=== PATIENT | male | born 1975 | race Caucasian/White ===

== ENCOUNTER 2016-09-12 16:08 | Emergency (ER) | payer SELFPAY ==
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
[2016-09-12] MEDS: MAGNESIUM HYDROXIDE/AL HYDROX 30 ML, LIDOCAINE VISC 2% 200 MG PO ONE ×2 (17:25)
[2016-09-12] MEDS: 0.9 % SODIUM CHLORIDE 1,000 ML BAG IV ONE (17:26)
[2016-09-12 17:46] LABS: BASO % 0.3 % (0-6); EOS % 2.4 % (0-6); GRAN % 49.9 % (47-80); HEMATOCRIT 48.3 % (42.0-52.0); HEMOGLOBIN 15.9 gm/dl (14.0-18.0); LYMPH % 37.3 % (16-45); MEAN CELL VOLUME 88.1 fl (81-97); MEAN CORPUSCULAR HGB CONC 32.9 g/dl (32-36); MEAN PLATELET VOLUME 10.2 fl (7.4-10.4); MONO % 10.1 % (0-9); PLATELET COUNT 240 K/uL (130-400); RED BLOOD COUNT 5.48 M/uL (4.40-5.70); RED CELL DISTRIBUTION WIDTH 13.4 % (11.5-14.5)
[2016-09-12 17:47] LABS: URINE APPEARANCE CLEAR; URINE BILIRUBIN NEGATIVE (NEGATIVE); URINE BLOOD NEGATIVE (NEGATIVE); URINE COLOR YELLOW; URINE GLUCOSE (UA) NEGATIVE (NEGATIVE); URINE KETONE NEGATIVE (NEGATIVE); URINE LEUKOCYTE ESTERASE NEGATIVE (NEGATIVE); URINE NITRITE NEGATIVE (NEGATIVE); URINE PROTEIN NEGATIVE (NEGATIVE); URINE UROBILINOGEN 0.2 E.U./dL (0.20 - 1.00)
[2016-09-12 17:59] LABS: ALBUMIN 4.2 gm/dL (3.5-5.0); ALKALINE PHOSPHATASE 80 U/L (38-126); ALT/SGPT 60 U/L (21-72); ANION GAP 9.3 (7-16); AST/SGOT 46 U/L (17-59); BILIRUBIN,TOTAL 0.48 mg/dL (0.2-1.3); BLOOD UREA NITROGEN 13 mg/dL (9-20); CARBON DIOXIDE 25.7 mmol/L (22-30); CREATININE 0.7 mg/dL (0.66-1.25); EST GLOMERULAR FILTRATION RATE > 60 ml/min; GLUCOSE,RANDOM 86 mg/dL (70-110); LIPASE 60 U/L (23-300); TOTAL PROTEIN 7.3 gm/dL (6.3-8.2)
== END 2016-09-12 18:11 | disposition home or self-care (01) ==
LOC: ER 16:08
DX: K29.01 Acute gastritis with bleeding (principal); R10.11 Right upper quadrant pain; R11.2 Nausea with vomiting, unspecified
CPT/HCPCS: 76700; 80048; 80076; 81003; 83690; 85025; 96360; 99284; J7030

== ENCOUNTER 2016-09-25 07:28 | Emergency (ER) | payer SELFPAY ==
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
[2016-09-25] MEDS ORDERED: MORPHINE SULFATE 5 MG/ML PFS IVP ONE (07:48)
[2016-09-25] MEDS ORDERED: 0.9 % SODIUM CHLORIDE 1,000 ML BAG IV ONE (07:48)
[2016-09-25] MEDS ORDERED: ONDANSETRON HCL IV 4 MG/2 ML VIAL IVP ONE (07:48)
[2016-09-25 07:57] LABS: BASO % 0.2 % (0-6); EOS % 2.5 % (0-6); GRAN % 63.3 % (47-80); HEMATOCRIT 49.9 % (42.0-52.0); HEMOGLOBIN 16.4 gm/dl (14.0-18.0); LYMPH % 26.1 % (16-45); MEAN CELL VOLUME 88.3 fl (81-97); MEAN CORPUSCULAR HGB CONC 32.9 g/dl (32-36); MEAN PLATELET VOLUME 10.2 fl (7.4-10.4); MONO % 7.9 % (0-9); PLATELET COUNT 253 K/uL (130-400); RED BLOOD COUNT 5.65 M/uL (4.40-5.70); RED CELL DISTRIBUTION WIDTH 13.4 % (11.5-14.5); WHITE BLOOD COUNT W/O DIFF 12.5 K/uL (4.2-12.2)
[2016-09-25 08:09] LABS: ALB/GLOB RATIO 1.4 (1.1-1.8); ALBUMIN 4.3 gm/dL (3.5-5.0); ALKALINE PHOSPHATASE 85 U/L (38-126); ALT/SGPT 53 U/L (21-72); ANION GAP 9.3 (7-16); AST/SGOT 33 U/L (17-59); BILIRUBIN,TOTAL 0.47 mg/dL (0.2-1.3); BLOOD UREA NITROGEN 14 mg/dL (9-20); CARBON DIOXIDE 23.7 mmol/L (22-30); CREATINE PHOSPHOKINASE 88 U/L (55-170); CREATININE 0.7 mg/dL (0.66-1.25); EST GLOMERULAR FILTRATION RATE > 60 ml/min; GLUCOSE,RANDOM 95 mg/dL (70-110); TOTAL PROTEIN 7.3 gm/dL (6.3-8.2)
[2016-09-25 08:12] LABS: D-DIMER < 0.19 mg/L FEU (0-0.59); PROTHROMBIN TIME (PATIENT) 11.3 SECONDS (9.5-12.1)
[2016-09-25 08:21] LABS: CKMB 0.4 ug/L (0-6); TROPONIN I < 0.012 ng/mL (0.00-0.034)
[2016-09-25] MEDS ORDERED: KETOROLAC 30 MG/ML VIAL IVP ONE (08:50)
== END 2016-09-25 11:02 | disposition home or self-care (01) ==
LOC: ER 07:28
DX: R07.89 Other chest pain (principal); G43.909 Migraine, unspecified, not intractable, without status migrainosus; R11.0 Nausea
CPT/HCPCS: 71020; 80053; 82550; 82553; 84484; 85025; 85379; 85610; 85730; 93005; 93010; 96374; 96375; 99284; J1885; J2405; J7030

== ENCOUNTER 2016-12-05 17:41 | Observation (INO) | payer SELFPAY ==
--- NOTE | 2016-12-05 18:05 | Emergency Department Record ---
History of Present Illness - General Chief Complaint: Dizziness Stated Complaint: DIZZY,CONFUSED,SWEATING Time Seen by Provider: 12/05/16 17:58 Source: Patient Mode of Arrival: Ambulatory Limitations: No limitations - History of Present Illness Initial Comments: The patient is here due to having episodes of lightheadedness and weakness over the last hour. The onset was spontaneous while he was standing outside. They start with feeling of lightheadedness, dizziness, then nausea, and a burning sensation in his nose along with sweating. The episodes last 30 seconds to a minute and resolve. He denies any BUENO, CP, SOB, or KARISHMA. The patient denies any hx of similar issues or problems and has had no recent illnesses. MD Complaint: Dizziness, Lightheadedness, Near syncope Onset/Timin -: Hour(s) Timing: Sudden onset, Intermittent Description: Lightheadedness, Nausea, Other History of Same: No History of Trauma: No Improves With: Nothing Worsens With: Nothing Associated Symptoms: Diaphoresis, Fever/chills, Weakness - Stevie Coma Scale Eye Response: (4) Open spontaneously Motor Response: (6) Obeys commands Verbal Response: (5) Oriented [place] Total: 15 - Related Data Allergies Allergy/AdvReac Type Severity Reaction Status Date / Time Penicillins Allergy HIVES Verified 12/05/16 17:50 Travel Screening - Travel/Exposure Within Last 30 Days Have you traveled within the last 30 days?: No Review of Systems Constitutional: Denies: Chills, Fever Eyes: Denies: Eye discharge ENT: Denies: Congestion Respiratory: Denies: Cough, Dyspnea Past Medical History - SOCIAL HISTORY Smoking Status: Current some day smoker Alcohol Use: None Drug Use: None - RESPIRATORY Hx Respiratory Disorders: No - CARDIOVASCULAR Hx Cardio Disorders: Yes Hx Chest Pain: Yes Hx Hypertension: Yes - NEURO Hx Neuro Disorders: No - GI Hx GI Disorders: No Hx Reflux: Yes - Hx Genitourinary Disorders: No - ENDOCRINE Hx Endocrine Disorders: No - MUSCULOSKELETAL Hx Musculoskeletal Disorders: No Hx Back Injury: Yes - PSYCH Hx Psych Problems: No - HEMATOLOGY/ONCOLOGY Hx Hematology/Oncology Disorders: No Family Medical History Any Significant Family History?: Yes Hx Diabetes: Grandparents Hx Heart Disease: Grandparents Physical Exam - General General Appearance: Alert, Oriented x3, Cooperative, No acute distress - Head Head exam: Atraumatic, Normocephalic, Normal inspection - Eye Eye exam: Normal appearance, PERRL, EOMI - ENT ENT exam: Normal exam, Mucous membranes moist, Normal external ear exam, Normal orophraynx, TM's normal bilaterally Throat exam: Normal inspection. negative: Tonsillar erythema, Tonsillar exudate - Neck Neck exam: Normal inspection, Full ROM. negative: Lymphadenopathy, Meningismus , Tenderness - Respiratory Respiratory exam: Normal lung sounds bilaterally. negative: Respiratory distress - Cardiovascular Cardiovascular Exam: Regular rate, Normal rhythm, Normal heart sounds. negative : Diastolic murmur, Systolic murmur - GI/Abdominal GI/Abdominal exam: Soft, Normal bowel sounds. negative: Tenderness - Extremities Extremities exam: Normal inspection, Full ROM, Normal capillary refill. negative: Tenderness - Neurological Neurological exam: Alert, Normal gait, Oriented X3, Other (Neg Drift or [place].). negative: Abnormal gait, Altered, Motor sensory deficit - Skin Skin exam: negative: Petechiae, Rash Course Vital Signs 12/05/16 17:46 Temperature 98.3 F Pulse Rate 80 Respiratory 20 Rate Blood Pressure 116/77 Pulse Ox 97 - Reevaluation(s) Reevaluation #1: The patient did have an episode of these spells while I was examining him. He did become quite diaphoretic but had no pain or syncope or confusion. it lasted only for about 30 seconds and he did have a strong regular pulse during the event. 12/05/16 18:18 Reevaluation #2: The patient is doing very well at this time. He has not had any further episodes since he was first in the ED. He has had no CP, SOB, BUENO or KARISHMA. Due to the confusing nature of his complaints I did recommend admission and he does agree. I then did discuss the case with Erin POLANCO) and she accepts the admission. 12/05/16 19:01 Medical Decision Making - Data Complexity MDM Data: Labs Ordered and/or Reviewed, EKG Ordered and/or Reviewed - Lab Data Result diagrams: 12/06/16 06:40 12/05/16 18:13 - EKG Data -: EKG Interpreted by Me EKG: No Acute Changes, Normal EKG Disposition Disposition: Admit Clinical Impression: Arrhythmia Qualifiers: Arrhythmia type: unspecified cardiac arrhythmia Qualified Code(s): I49.9 - Cardiac arrhythmia, unspecified Disposition: Still a Patient at [facility] Decision to Admit: Admit from ER Decision to Admit Date: 12/05/16 Decision to Admit Time: 19:04 Accepting Physician: Amy Time Discussed w/Accepting Physician: 19:04 Condition: (2) Stable Time of Disposition: 19:04 Quality - Quality Measures Quality Measures: N/A - Blood Pressure Screening View Details: Yes Blood Pressure Classification: Normal BP Reading Systolic Measurement: 116 Diastolic Measurement: 77 Screening for High Blood Pressure: < Normal BP, F/U Not Required > [G8783] Normal BP Follow-up Interventions: No follow-up required
[2016-12-05 18:20] LABS: BASO % 0.2 % (0-6); EOS % 1.7 % (0-6); GRAN % 58.7 % (47-80); HEMATOCRIT 48.6 % (42.0-52.0); HEMOGLOBIN 16.5 gm/dl (14.0-18.0); LYMPH % 29.4 % (16-45); MEAN CELL VOLUME 86.3 fl (81-97); MEAN CORPUSCULAR HEMOGLOBIN 29.3 pg (27-33); MEAN PLATELET VOLUME 10.2 fl (7.4-10.4); PLATELET COUNT 257 K/uL (130-400); RED BLOOD COUNT 5.63 M/uL (4.40-5.70); RED CELL DISTRIBUTION WIDTH 13.3 % (11.5-14.5); WHITE BLOOD COUNT W/O DIFF 12.7 K/uL (4.2-12.2)
[2016-12-05 18:34] LABS: ANION GAP 11.5 (7-16); BLOOD UREA NITROGEN 14 mg/dL (9-20); CARBON DIOXIDE 25.5 mmol/L (22-30); CREATINE PHOSPHOKINASE 83 U/L (55-170); CREATININE 0.8 mg/dL (0.66-1.25); EST GLOMERULAR FILTRATION RATE > 60 ml/min; GLUCOSE,RANDOM 83 mg/dL (70-110)
[2016-12-05 18:36] LABS: INR 1.03; PARTIAL THROMBOPLASTIN TIME 29.2 SECONDS (24.5-39.1); PROTHROMBIN TIME (PATIENT) 11.1 SECONDS (9.5-12.1)
[2016-12-05 18:45] LABS: CKMB 0.4 ug/L (0-6)
[2016-12-05 18:46] LABS: URINE APPEARANCE CLEAR; URINE BILIRUBIN NEGATIVE (NEGATIVE); URINE BLOOD TRACE-I (NEGATIVE); URINE COLOR YELLOW; URINE GLUCOSE (UA) NEGATIVE (NEGATIVE); URINE KETONE NEGATIVE (NEGATIVE); URINE LEUKOCYTE ESTERASE NEGATIVE (NEGATIVE); URINE NITRITE NEGATIVE (NEGATIVE); URINE PROTEIN NEGATIVE (NEGATIVE); URINE UROBILINOGEN 0.2 E.U./dL (0.20 - 1.00)
[2016-12-05 18:48] LABS: TROPONIN I < 0.012 ng/mL (0.00-0.034)
[2016-12-05 18:55] LABS: AMPHETAMINE SCREEN URINE NOT DETECTED; BARBITURATE SCREEN URINE NOT DETECTED; BENZODIAZEPINE SCREEN URINE NOT DETECTED; COCAINE SCREEN URINE NOT DETECTED; METHADONE SCREEN URINE NOT DETECTED; METHAMPHETAMINE SCREEN NOT DETECTED; OPIATE SCREEN URINE NOT DETECTED; OXYCODONE SCREEN URINE NOT DETECTED; PHENCYCLIDINE SCREEN URINE NOT DETECTED; PROPOXYPHENE SCREEN URINE NOT DETECTED; THC SCREEN URINE DETECTED; TRICYCLIC ANTIDEPRESSANT SCRN NOT DETECTED
[2016-12-05 18:56] LABS: URINE RBC 0 - 2 (NONE SEEN); URINE WBC 0 - 2 (0-2/hpf)
[2016-12-05 18:57] LABS: URINE EPITHELIAL CELLS 0 - 2 (FEW)
[2016-12-05] MEDS: ASPIRIN 325 MG TAB ENTERIC-COATED PO SCH (21:17)
[2016-12-05 23:37] LABS: CKMB 0.3 ug/L (0-6); TROPONIN I < 0.012 ng/mL (0.00-0.034)
[2016-12-06 06:53] LABS: BASO % 0.3 % (0-6); EOS % 2.3 % (0-6); GRAN % 51.8 % (47-80); HEMATOCRIT 49.7 % (42.0-52.0); HEMOGLOBIN 16.5 gm/dl (14.0-18.0); LYMPH % 36.5 % (16-45); MEAN CELL VOLUME 87.5 fl (81-97); MEAN CORPUSCULAR HGB CONC 33.2 g/dl (32-36); MEAN PLATELET VOLUME 9.5 fl (7.4-10.4); MONO % 9.1 % (0-9); PLATELET COUNT 244 K/uL (130-400); RED BLOOD COUNT 5.68 M/uL (4.40-5.70); RED CELL DISTRIBUTION WIDTH 13.6 % (11.5-14.5); WHITE BLOOD COUNT W/O DIFF 11.2 K/uL (4.2-12.2)
[2016-12-06] MEDS ORDERED: PANTOPRAZOLE SODIUM 40 MG TABLET PO SCH (07:00)
[2016-12-06 07:04] LABS: ANION GAP 10.6 (7-16); BLOOD UREA NITROGEN 15 mg/dL (9-20); CARBON DIOXIDE 24.4 mmol/L (22-30); CREATININE 0.8 mg/dL (0.66-1.25); EST GLOMERULAR FILTRATION RATE > 60 ml/min; GLUCOSE,RANDOM 91 mg/dL (70-110)
[2016-12-06 07:16] LABS: CKMB 0.3 ug/L (0-6)
[2016-12-06 07:19] LABS: TROPONIN I < 0.012 ng/mL (0.00-0.034)
--- NOTE | 2016-12-06 08:01 | History & Physical ---
History of Present Illness - Date of Service Date of Service for History & Physical: 12/06/16 - History of Present Illness Admitting Diagnosis: 1. Acute Arrythmia by history. History of Present Illness: 41yo male with CC of light-headed. He has history of GERD and currently smokes. Patient presented to the ED due to having episodes of lightheadedness and weakness over the last hour. The onset was spontaneous while he was standing outside. They start with feeling of lightheadedness, dizziness, then nausea, and a burning sensation in his nose along with sweating. The episodes last 30 seconds to a minute and resolve. He denies any BUENO, CP, SOB, or KARISHMA. The patient denies any hx of similar issues or problems and has had no recent illnesses. He decided to come to the ED While in the ED, patient had normal EKG without changes from previous and no ST changes. 1st set of cardiac enzymes were normal. CBC and CMP were unremarkable. UA was normal. Toxicology was normal. Patient experienced another episode while in the ED but had regular rhythm and rate during that episode. no hypotension and episode resolved spontaneously. Patient was admitted for observation and for serial enzymes. 12/06/16-Patient states he has no further episodes since the one in the ED. he denies headache, chest pain, shortness of breath, numbness, tingling or weakness , no confusion. He says he was working outside in the heat when this occurred. He does typically work outside and this was not new for him. He has been seen by Dr. Miller in the past month for another ED visit for atypical chest pain. Patient is trying to establish with [facility] family practice. Travel Screening - Travel/Exposure Within Last 30 Days Have you traveled within the last 30 days?: No - Travel/Exposure Within Last Year Have you traveled outside the [place] in the last year?: No - Additonal Travel Details Have you been exposed to anyone with a communicable illness?: No Review of Systems Constitutional: Denies: Chills, Fever Eyes: Denies: Eye discharge ENT: Denies: Congestion Respiratory: Denies: Cough, Dyspnea Past Medical History - SOCIAL HISTORY Smoking Status: Current some day smoker Alcohol Use: None Drug Use: None - RESPIRATORY Hx Respiratory Disorders: No - CARDIOVASCULAR Hx Cardio Disorders: Yes Hx Chest Pain: Yes Hx Hypertension: Yes - NEURO Hx Neuro Disorders: No - GI Hx GI Disorders: No Hx Reflux: Yes - Hx Genitourinary Disorders: No - ENDOCRINE Hx Endocrine Disorders: No - MUSCULOSKELETAL Hx Musculoskeletal Disorders: No Hx Back Injury: Yes - PSYCH Hx Psych Problems: No - HEMATOLOGY/ONCOLOGY Hx Hematology/Oncology Disorders: No Family Medical History Any Significant Family History?: Yes Hx Diabetes: Grandparents Hx Heart Disease: Grandparents H&P Meds/Allergies - Allergies Allergies: Allergies Allergy/AdvReac Type Severity Reaction Status Date / Time Penicillins Allergy HIVES Verified 12/05/16 17:50 - Active Medications Active Medications: Current Medications Aspirin (Ecotrin (Ec)) 325 mg PO DAILY [facility] Last Admin: 12/05/16 21:17 Dose: 325 mg Pantoprazole [facility] Admin: 12/06/16 06:58 Dose: 40 mg Physical Exam - Vital Signs Vital Signs: Vital Signs - Last 24 Hrs Temp Pulse Pulse Resp BP Pulse Ox 12/06/16 05:57 97.4 F L 66 24 137/79 95 12/06/16 02:19 97.8 F 70 21 129/71 96 12/05/16 22:19 97.7 F 78 24 136/73 95 12/05/16 20:19 88.2 F L 80 16 144/84 94 L - General General Appearance: Alert, Oriented x3, Cooperative, No acute distress Limitations: No limitations - Head Head exam: Atraumatic, Normocephalic, Normal inspection - Eye Eye exam: Normal appearance, PERRL, EOMI - ENT ENT exam: Normal exam, Mucous membranes moist, Normal external ear exam, Normal orophraynx, TM's normal bilaterally Throat exam: Normal inspection. negative: Tonsillar erythema, Tonsillar exudate - Neck Neck exam: Normal inspection, Full ROM. negative: Lymphadenopathy, Meningismus , Tenderness - Respiratory Respiratory exam: Normal lung sounds bilaterally. negative: Respiratory distress - Cardiovascular Cardiovascular Exam: Regular rate, Normal rhythm, Normal heart sounds. negative : Diastolic murmur, Systolic murmur - GI/Abdominal GI/Abdominal exam: Soft, Normal bowel sounds. negative: Tenderness - Extremities Extremities exam: Normal inspection, Full ROM, Normal capillary refill. negative: Tenderness - Neurological Neurological exam: Alert, Normal gait, Oriented X3, Other (Neg Drift or Rhomberg.). negative: Abnormal gait, Altered, Motor sensory deficit - Skin Skin exam: negative: Petechiae, Rash Results - Labs Result Diagrams: 12/06/16 06:40 12/06/16 06:40 Labs Last 24 Hours: Laboratory Results - last 24 hr 12/05/16 12/06/16 12/06/16 23:05 06:40 06:40 WBC 11.2 RBC 5.68 Hgb 16.5 Hct 49.7 MCV 87.5 MCH 29.0 MCHC 33.2 RDW 13.6 Plt Count 244 MPV 9.5 Gran % 51.8 Lymphocytes % 36.5 Monocytes % 9.1 H Eosinophils % 2.3 Basophils % 0.3 Sodium 141 Potassium 4.0 Chloride 106 Carbon Dioxide 24.4 Anion Gap 10.6 BUN 15 Creatinine 0.8 Estimated GFR > 60 Random Glucose 91 Calcium 9.1 CK-MB (CK-2) 0.3 Troponin I < 0.012 12/06/16 06:40 WBC RBC Hgb Hct MCV MCH MCHC RDW Plt Count MPV Gran % Lymphocytes % Monocytes % Eosinophils % Basophils % Sodium Potassium Chloride Carbon Dioxide Anion Gap BUN Creatinine Estimated GFR Random Glucose Calcium CK-MB (CK-2) 0.3 Troponin I < 0.012 VTE H&P Assessment - Risk for VTE Risk for VTE: Yes Risk Level: Very Low Risk Assessment Date: 12/06/16 Risk Assessment Time: 11:31 VTE Orders Placed or Will Be Placed: Yes Plan - Detailed Diagnosis and Plan (1) Light headed Current Visit: Yes Status: Acute Base Code: R42 - DIZZINESS AND GIDDINESS Comment: 12/06/16- Patient has not had any further episodes of light-headedness. He denies any chest pain. Monitored him overnight on telemetry, had a few episodes with bradycardia with sleep but regular rhythm. all 3 sets of CE returned wnl range. CBC and CMP were unremarkable as was UA and toxicology screen. do not feel this is cardiac in origin but likely vasovagal vs heat related. -will plan to discharge home. patient has had outpatient consultation with Dr. Miller previously. He will follow up with [facility] Family practice. -if episodes are recurrent may consider a longer duration of monitoring with a holter. (2) Full code status Current Visit: Yes Status: Acute Base Code: Z78.9 - OTHER SPECIFIED HEALTH STATUS Comment: 12/06/16- patient is full code (3) DVT prophylaxis Current Visit: Yes Status: Acute Base Code: [id number] - Comment: 12/06/16- patient very low risk for DVT -will encourage ambulation -will add lovneox if stay >24H anticipated
[2016-12-06] MEDS: ASPIRIN 325 MG TAB ENTERIC-COATED PO SCH (10:48)
--- NOTE | 2016-12-06 11:58 | Discharge Summary ---
Providers Discharge Summary Date: 12/06/16 Date of admission: 12/05/16 20:05 Expected Date of Discharge: 12/06/16 Attending physician: NA GONZALEZ Primary care physician: NA GONZALEZ Consults: Consult Orders 12/06/16 09:08 Consult NOW Consulting Provider: NA GONZALEZ Physician Instructions: Financial consult Reason For Exam: Financial consult Physical Exam - Vital Signs Vital Signs: Vital Signs - Last 24 Hrs Temp Pulse Pulse Resp BP Pulse Ox 12/06/16 08:51 55 L 12/06/16 05:57 97.4 F L 66 24 137/79 95 12/06/16 02:19 97.8 F 70 21 129/71 96 12/05/16 22:19 97.7 F 78 24 136/73 95 12/05/16 20:19 88.2 F L 80 16 144/84 94 L - General General Appearance: Alert, Oriented x3, Cooperative, No acute distress Limitations: No limitations - Head Head exam: Atraumatic, Normocephalic, Normal inspection - Eye Eye exam: Normal appearance, PERRL, EOMI - ENT ENT exam: Normal exam, Mucous membranes moist, Normal external ear exam, Normal orophraynx, TM's normal bilaterally Throat exam: Normal inspection. negative: Tonsillar erythema, Tonsillar exudate - Neck Neck exam: Normal inspection, Full ROM. negative: Lymphadenopathy, Meningismus , Tenderness - Respiratory Respiratory exam: Normal lung sounds bilaterally. negative: Respiratory distress - Cardiovascular Cardiovascular Exam: Regular rate, Normal rhythm, Normal heart sounds. negative : Diastolic murmur, Systolic murmur - GI/Abdominal GI/Abdominal exam: Soft, Normal bowel sounds. negative: Tenderness - Extremities Extremities exam: Normal inspection, Full ROM, Normal capillary refill. negative: Tenderness - Neurological Neurological exam: Alert, Normal gait, Oriented X3, Other (Neg Drift or Rhomberg.). negative: Abnormal gait, Altered, Motor sensory deficit - Skin Skin exam: negative: Petechiae, Rash Hospitalization - Hospitalization Admission Diagnosis: 1. Acute Arrythmia by history. - Problem List/Discharge Diagnosis (1) Light headed Current Visit: Yes Status: Acute Base Code: R42 - DIZZINESS AND GIDDINESS Comment: 12/06/16- Patient has not had any further episodes of light-headedness. He denies any chest pain. Monitored him overnight on telemetry, had a few episodes with bradycardia with sleep but regular rhythm. all 3 sets of CE returned wnl range. CBC and CMP were unremarkable as was UA and toxicology screen. do not feel this is cardiac in origin but likely vasovagal vs heat related. -will plan to discharge home. patient has had outpatient consultation with Dr. Miller previously. He will follow up with [facility]. -if episodes are recurrent may consider a longer duration of monitoring with a holter. (2) Full code status Current Visit: Yes Status: Acute Base Code: Z78.9 - OTHER SPECIFIED HEALTH STATUS Comment: 12/06/16- patient is full code (3) DVT prophylaxis Current Visit: Yes Status: Acute Base Code: [id number] - Comment: 12/06/16- patient very low risk for DVT -will encourage ambulation -will add lovneox if stay >24H anticipated - Hospitalization Course Disposition: Home, Self-Care Hospital Course: 41yo male with CC of light-headed. He has history of GERD and currently smokes. Patient presented to the ED due to having episodes of lightheadedness and weakness over the last hour. The onset was spontaneous while he was standing outside. They start with feeling of lightheadedness, dizziness, then nausea, and a burning sensation in his nose along with sweating. The episodes last 30 seconds to a minute and resolve. He denies any BUENO, CP, SOB, or KARISHMA. The patient denies any hx of similar issues or problems and has had no recent illnesses. He decided to come to the ED While in the ED, patient had normal EKG without changes from previous and no ST changes. 1st set of cardiac enzymes were normal. CBC and CMP were unremarkable. UA was normal. Toxicology was normal. Patient experienced another episode while in the ED but had regular rhythm and rate during that episode. no hypotension and episode resolved spontaneously. Patient was admitted for observation and for serial enzymes. 12/06/16-Patient states he has no further episodes since the one in the ED. he denies headache, chest pain, shortness of breath, numbness, tingling or weakness , no confusion. He says he was working outside in the heat when this occurred. He does typically work outside and this was not new for him. He has been seen by Dr. Miller in the past month for another ED visit for atypical chest pain. Patient is trying to establish with [facility] family practice. Abnormal Labs: Abnormal Lab Results 12/06/16 Range/Units 06:40 Monocytes % 9.1 H (0-9) % Condition at Discharge: (2) Stable Discharge Plan - Discharge Instructions Activity at Discharge: Resume Usual Activities As Tolerated Diet at Discharge: Low Fat, Low Cholesterol, Low Salt Diet Additional Instructions: Follow up with [facility] family practice. Tana manager medicare will schedule continue home medications Please call with any questions or concerns Return to ED for new or worsening symptoms
== END 2016-12-06 12:15 | disposition home or self-care (01) ==
LOC: ER 17:41 → MEDSURG 20:05
PROVIDERS: ADMIT Family Medicine; ATTEND Family Medicine
DX: R42 Dizziness and giddiness (principal); Z78.9 Other specified health status; F17.200 Nicotine dependence, unspecified, uncomplicated; K21.9 Gastro-esophageal reflux disease without esophagitis; I10 Essential (primary) hypertension
CPT/HCPCS: 80048; 80305; 81001; 82550; 82553; 84484; 85025; 85610; 85730; 93005; 93010; 99220; 99285

== ENCOUNTER 2016-12-07 13:07 | Emergency (ER) | payer SELFPAY ==
--- NOTE | 2016-12-07 13:19 | Emergency Department Record ---
History of Present Illness - General Chief Complaint: Syncope Stated Complaint: near syncope Time Seen by Provider: 12/07/16 13:11 Source: Patient Mode of Arrival: Ambulatory Limitations: No limitations - History of Present Illness Initial Comments: The patient is here due to having a "spell" 2 hours ago. He was at home and had an episode of lightheadedness, had trouble speaking, weakness and a mild BUENO that lasted about 30 seconds. It did resolve spontaneously and since he has had very mild L lower lip tingling. He denies any arm or leg numbness, weakness, BUENO , visual changes or balance issues. The patient has had similar spells 2 days ago and was admitted to the hospital overnight. No diagnosis was given and he was discharged yesterday. MD Complaint: Other Onset/Timin -: Hour(s) Prodromal Symptoms: Headache, Lightheaded, Vertigo Duration of Episode: 30 -: Second(s) - Stevie Coma Scale Eye Response: (4) Open spontaneously Motor Response: (6) Obeys commands Verbal Response: (5) Oriented Jasper Total: 15 - Related Data Allergies Allergy/AdvReac Type Severity Reaction Status Date / Time Penicillins Allergy HIVES Verified 12/05/16 17:50 Travel Screening - Travel/Exposure Within Last 30 Days Have you traveled within the last 30 days?: No - Travel/Exposure Within Last Year Have you traveled outside the [place] in the last year?: No - Additonal Travel Details Have you been exposed to anyone with a communicable illness?: No - Travel Symptoms Symptom Screening: None Review of Systems Constitutional: Denies: Chills, Fever Eyes: Denies: Eye discharge ENT: Denies: Congestion Respiratory: Denies: Cough, Dyspnea Past Medical History - SOCIAL HISTORY Smoking Status: Current every day smoker Alcohol Use: None Drug Use: None - RESPIRATORY Hx Respiratory Disorders: No - CARDIOVASCULAR Hx Cardio Disorders: Yes Hx Chest Pain: Yes Hx Hypertension: Yes - NEURO Hx Neuro Disorders: No - GI Hx GI Disorders: No Hx Reflux: Yes - Hx Genitourinary Disorders: No - ENDOCRINE Hx Endocrine Disorders: No - MUSCULOSKELETAL Hx Musculoskeletal Disorders: No Hx Back Injury: Yes - PSYCH Hx Psych Problems: No - HEMATOLOGY/ONCOLOGY Hx Hematology/Oncology Disorders: No Family Medical History Any Significant Family History?: No Hx Diabetes: Grandparents Hx Heart Disease: Grandparents Physical Exam - General General Appearance: Alert, Oriented x3, Cooperative, No acute distress - Head Head exam: Atraumatic, Normocephalic, Normal inspection - Eye Eye exam: Normal appearance, PERRL, EOMI - ENT ENT exam: Normal exam, Mucous membranes moist, Normal external ear exam, Normal orophraynx, TM's normal bilaterally Throat exam: Normal inspection. negative: Tonsillar erythema, Tonsillar exudate - Neck Neck exam: Normal inspection, Full ROM. negative: Lymphadenopathy, Tenderness, Thyromegaly - Respiratory Respiratory exam: Normal lung sounds bilaterally. negative: Respiratory distress - Cardiovascular Cardiovascular Exam: Regular rate, Normal rhythm, Normal heart sounds - GI/Abdominal GI/Abdominal exam: Soft, Normal bowel sounds. negative: Tenderness - Extremities Extremities exam: Normal inspection, Full ROM, Normal capillary refill. negative: Tenderness - Neurological Neurological exam: Alert, Normal gait, Oriented X3, Other (Neg Drift or Rhomberg exams. He does have mild subjective tingling to the L lower lip.). negative: Abnormal gait, Altered, Motor sensory deficit (Except for the L lower lip.) - Psychiatric Psychiatric exam: negative: Agitated, Anxious, Depressed Course Vital Signs 12/07/16 13:11 Temperature 98.4 F Pulse Rate 71 Respiratory 16 Rate Blood Pressure 120/89 Pulse Ox 96 - Reevaluation(s) Reevaluation #1: The patient is doing very well at this time. He denies any new symptoms or issues. I did discuss the issues with the patient and did recommend hospital admission for further studies and he did agree. He would like to go to [facility] so I did discuss the case with Dr. Vásquez and he does accept the patient to the hospital as a direct admit. 12/07/16 14:32 Medical Decision Making - Data Complexity [facility] Data: X-Ray Ordered and/or Reviewed, EKG Ordered and/or Reviewed - EKG Data -: EKG Interpreted by Me EKG: No Acute Changes, Normal EKG - Radiology Data Radiology results: Report reviewed (Head CT: Neg per Rad.) Disposition Disposition: Transfer Clinical Impression: Light headed TIA (transient ischemic attack) Qualifiers: Transient cerebral ischemia type: other Qualified Code(s): G45.8 - Other transient cerebral ischemic attacks and related syndromes Disposition: Acute Care Hospital Transfer Transfer To: [facility] Reason For Transfer: Neurology Accepting Physician: Thalia Time Discussed w/Accepting Physician: 14:35 Condition: (1) Good Forms: Patient Portal Access Time of Disposition: 14:35 Quality - Quality Measures Quality Measures: N/A - Blood Pressure Screening View Details: Yes Blood Pressure Classification: Pre-Hypertensive BP Reading Systolic Measurement: 120 Diastolic Measurement: 89 Screening for High Blood Pressure: < Pre-Hypertensive BP, F/U Documented > [ G8950] Pre-Hypertensive Follow-up Interventions: Follow-up with rescreen every year.
[2016-12-07] MEDS: ASPIRIN 325 MG TABLET PO ONE (14:03)
--- NOTE | 2016-12-07 14:07 | CT SCAN REPORT ---
EXAM: CT OF THE HEAD WITHOUT CONTRAST HISTORY: VERTIGO. TRANSIENT APHASIA. MIGRAINE HEADACHE. NAUSEA. TECHNIQUE: Routine noncontrast CT examination of the head was obtained. Comparison: None. FINDINGS: The ventricles are not enlarged. The left lateral ventricle is larger than the right, likely developmental. The subarachnoid spaces are normal in size. No area of abnormally increased or decreased attenuation is noted throughout the brain substance. No abnormal extraaxial fluid collection is seen nor is there skull fracture identified. There is mild mucosal thickening in a few ethmoid air cells and the sphenoid sinuses. A tiny retention cyst or less likely polyp is present within the lateral aspect of the left sphenoid sinus. The orbits are unremarkable. The mastoid air cells are clear. IMPRESSION: 1. NO CT EVIDENCE OF AN ACUTE INTRACRANIAL ABNORMALITY. 2. THE LEFT LATERAL VENTRICLE IS MILDLY LARGER THAN THE RIGHT, LIKELY DEVELOPMENTAL. 3. MILD MUCOSAL THICKENING IN SEVERAL ETHMOID AIR CELLS AND THE SPHENOID SINUSES. TINY RETENTION CYST OR POLYP WITHIN THE LEFT SPHENOID SINUS. JOB NUMBER: [id number] MTDD
== END 2016-12-07 15:46 | disposition short-term general hospital (02) ==
LOC: ER 13:07
DX: G45.8 Other transient cerebral ischemic attacks and related syndromes (principal); R51 Headache; R55 Syncope and collapse; R47.01 Aphasia; I10 Essential (primary) hypertension; F17.210 Nicotine dependence, cigarettes, uncomplicated
CPT/HCPCS: 70450; 93005; 93010; 99285

== ENCOUNTER 2017-07-30 05:17 | Emergency (ER) | payer MEDICAID, SELFPAY ==
[2017-07-30] MEDS ORDERED: KETOROLAC 30 MG/ML VIAL IVP ONE (05:24)
[2017-07-30] MEDS ORDERED: METOCLOPRAMIDE HCL 10 MG/2 ML VIAL IVP ONE (05:24)
[2017-07-30] MEDS ORDERED: 0.9 % SODIUM CHLORIDE 1,000 ML BAG IV ONE (05:24)
[2017-07-30] MEDS ORDERED: DIPHENHYDRAMINE HCL IV 50 MG/ML VIAL IVP ONE (05:24)
--- NOTE | 2017-07-30 05:31 | Emergency Department Record ---
History of Present Illness - General Chief Complaint: Headache Migraine Stated Complaint: HEADACHE Time Seen by Provider: 07/30/17 05:19 Source: Patient Mode of Arrival: Ambulatory Limitations: No limitations - History of Present Illness Initial Comments: 41 yo male presents with a headache that started at 2am. He states he has had migraines since he was a child. He had headaches he identifies as migraines woody 2-3 weeks. He states his current symptoms are typical of his migraine in local and character but did not respond to his typical medications. He is light sensitive and nauseated. He vomited twice. This symptoms are not unusual with his migraines. He follows with [facility] neurology for his migraines. No other recent illness or changes in his health. MD Complaint: "Migraine" -: Hour(s) (5.5) Onset Description: Awoke with symptoms Location: Left Severity: Moderate Quality: Aching, Throbbing, Similar to previous headaches Consistency: Constant Improves With: Nothing Worsens With: Light, Noise Associated Symptoms: Nausea, Photophobia, Sensitivity to sound Treatments Prior to Arrival: Migraine medication - Related Data Allergies Allergy/AdvReac Type Severity Reaction Status Date / Time Penicillins Allergy HIVES Verified 12/05/16 17:50 Review of Systems Constitutional: Denies: Chills, Fever, Malaise, Weakness Eyes: Reports: Photophobia. Denies: Eye discharge, Eye pain, Vision change ENT: Denies: Congestion, Throat pain Respiratory: Denies: Cough, Dyspnea Cardiovascular: Denies: Chest pain, Palpitations, Syncope Endocrine: Denies: Fatigue Gastrointestinal: Reports: Nausea, Vomiting. Denies: Abdominal pain, Diarrhea Genitourinary: Denies: Dysuria, Frequency, Hematuria Musculoskeletal: Denies: Arthralgia, Back pain, Joint swelling, Myalgia Skin: Denies: Bruising, Change in color, Rash Neurological: Reports: Headache. Denies: Abnormal gait, Confusion, Numbness, Paresthesias, Seizure, Tingling, Tremors, Vertigo, Weakness Psychiatric: Denies: Anxiety Hematological/Lymphatic: Denies: Blood Clots, Easy bleeding, Easy bruising, Swollen glands Past Medical History - SOCIAL HISTORY Smoking Status: Current every day smoker Drug Use: None - RESPIRATORY Hx Respiratory Disorders: No - CARDIOVASCULAR Hx Cardio Disorders: Yes Hx Chest Pain: Yes Hx Hypertension: Yes - NEURO Hx Neuro Disorders: No - GI Hx GI Disorders: No Hx Reflux: Yes - Hx Genitourinary Disorders: No - ENDOCRINE Hx Endocrine Disorders: No - MUSCULOSKELETAL Hx Musculoskeletal Disorders: No Hx Back Injury: Yes - PSYCH Hx Psych Problems: No - HEMATOLOGY/ONCOLOGY Hx Hematology/Oncology Disorders: No Family Medical History Hx Diabetes: Grandparents Hx Heart Disease: Grandparents Physical Exam - General General Appearance: Alert, Oriented x3, Cooperative, No acute distress Limitations: No limitations - Head Head exam: Normal inspection - Eye Eye exam: Normal appearance, PERRL, EOMI. negative: Conjunctival injection, Nystagmus, Periorbital swelling, Scleral icterus - ENT ENT exam: Normal exam Ear exam: Normal external inspection Nasal Exam: Normal inspection Mouth exam: Normal external inspection - Neck Neck exam: Normal inspection, Full ROM. negative: Lymphadenopathy, Meningismus , Tenderness - Respiratory Respiratory exam: Normal lung sounds bilaterally. negative: Respiratory distress - Cardiovascular Cardiovascular Exam: Regular rate, Normal rhythm, Normal heart sounds Peripheral Pulses: 2+: Radial (R), Radial (L) - Rectal Rectal exam: Deferred - exam: Deferred - Extremities Extremities exam: Normal inspection, Full ROM - Back Back exam: Denies: Muscle spasm, Paraspinal tenderness, Tenderness - Neurological Neurological exam: Alert, CN II-XII intact, Normal gait, Oriented X3. negative : Abnormal gait, Altered, Motor sensory deficit - Psychiatric Psychiatric exam: Normal affect, Normal mood - Skin Skin exam: Dry, Intact, Normal color, Warm Course Vital Signs 07/30/17 05:21 Temperature 97.6 F Pulse Rate [ 74 Pulse Ox Probe] Respiratory 20 Rate Blood Pressure 158/104 [Left Arm] Pulse Ox 96 - Reevaluation(s) Reevaluation #1: 07/30/17 06:15 On recheck the patient is doing much better His nausea has resolved. His pain level is decreasing. He is comfortable resting at this time. 07/30/17 06:48 The patient is resting comfortably and he reports he is ready for DC We discussed home care, rest, hydration and reasons to return Disposition Clinical Impression: Migraine headache Disposition: Home, Self-Care Instructions: Migraine Headache (ED) Additional Instructions: Call DR Paez for close followup of your headache Return if worse, any new symptoms or concerns Rest and stay well hydrated. Forms: Patient Portal Access Quality - Quality Measures Quality Measures: N/A - Blood Pressure Screening Does Patient Have Any of the Following: No Blood Pressure Classification: Hypertensive Reading Systolic Measurement: 142 Diastolic Measurement: 96 Screening for High Blood Pressure: < Pre-Hypertensive BP, F/U Documented > [ G8950] Pre-Hypertensive Follow-up Interventions: Referral to alternative/primary care provider.
[2017-07-30] MEDS ORDERED: DEXAMETHASONE SOD PHOSPHATE 10MG/ML VIAL IVP ONE (06:15)
== END 2017-07-30 06:54 | disposition home or self-care (01) ==
LOC: ER 05:17
DX: G43.909 Migraine, unspecified, not intractable, without status migrainosus (principal); R11.0 Nausea; H53.149 Visual discomfort, unspecified; I10 Essential (primary) hypertension; F17.210 Nicotine dependence, cigarettes, uncomplicated
CPT/HCPCS: 99284 ×2; 96374; 96375; J1885; J1100; J1200; J2765; J7030

== ENCOUNTER 2017-08-27 07:55 | Emergency (ER) | payer MEDICAID, SELFPAY ==
--- NOTE | 2017-08-27 08:18 | Emergency Department Record ---
History of Present Illness - General Chief Complaint: Dizziness Stated Complaint: DIZZINESS Time Seen by Provider: 08/27/17 08:09 Source: Patient Mode of Arrival: Ambulatory Limitations: No limitations - History of Present Illness Initial Comments: 41 yo male presents with a resolved 10 minute episode of lightheaded and dizziness. He felt a burning sensation in the nasal area. It made him briefly nauseated and he dry heaved a couple times. No syncope. No weakness. No vision or speech changes. He had a similar episode that last longer last year. He was transferred and admitted to [facility]. He reports to me he had normal MRI, ECHO, and EEG. NO definitive diagnosis was made. He states he was admitted to rule out a TIA at that time. No history of diagnosed stroke, CAD, arrhythmia. No chest pain. No shortness of breath. Onset/Timin -: Minutes(s) Timing: Sudden onset Description: Nausea, "Room spinning" History of Same: Yes History of Trauma: No Severity: Mild Improves With: Nothing Worsens With: Nothing Associated Symptoms: Denies other symptoms, Other - Related Data Allergies Allergy/AdvReac Type Severity Reaction Status Date / Time Penicillins Allergy HIVES Verified 12/05/16 17:50 Travel Screening - Travel/Exposure Within Last 30 Days Have you traveled within the last 30 days?: No Review of Systems Constitutional: Denies: Chills, Fever, Malaise, Weakness Eyes: Reports: Eye pain (resolved). Denies: Eye discharge ENT: Denies: Congestion, Dental pain, Ear pain, Epistaxis, Throat pain Respiratory: Denies: Cough, Dyspnea, Hemoptysis, Stridor, Wheezes Cardiovascular: Denies: Chest pain, Palpitations, Syncope Endocrine: Denies: Fatigue, Polydipsia, Polyuria Gastrointestinal: Reports: As per HPI, Nausea, Vomiting. Denies: Diarrhea Genitourinary: Denies: Dysuria, Frequency Musculoskeletal: Denies: Arthralgia, Back pain, Joint swelling, Myalgia Skin: Denies: Bruising, Change in color, Rash Neurological: Reports: Vertigo. Denies: Abnormal gait, Confusion, Headache, Numbness, Paresthesias, Seizure, Tingling, Tremors, Weakness Psychiatric: Denies: Anxiety Hematological/Lymphatic: Denies: Blood Clots, Easy bleeding, Easy bruising, Swollen glands Past Medical History - SOCIAL HISTORY Smoking Status: Former smoker Alcohol Use: None Drug Use: None - RESPIRATORY Hx Respiratory Disorders: No - CARDIOVASCULAR Hx Cardio Disorders: Yes Hx Chest Pain: Yes Hx Hypertension: Yes - NEURO Hx Neuro Disorders: Yes Hx Headaches: Yes (migraine) - GI Hx GI Disorders: Yes Hx Reflux: Yes - Hx Genitourinary Disorders: No - ENDOCRINE Hx Endocrine Disorders: No - MUSCULOSKELETAL Hx Musculoskeletal Disorders: Yes Hx Back Injury: Yes - PSYCH Hx Psych Problems: No - HEMATOLOGY/ONCOLOGY Hx Hematology/Oncology Disorders: No Family Medical History Any Significant Family History?: Yes Hx Diabetes: Grandparents Hx Heart Disease: Grandparents Physical Exam - General General Appearance: Alert, Oriented x3, Cooperative, No acute distress, Other ( Well appearing, conversational, clear thoughts and speech) Limitations: No limitations - Head Head exam: Atraumatic, Normocephalic, Normal inspection - Eye Eye exam: Normal appearance, PERRL, EOMI. negative: Conjunctival injection, Nystagmus, Periorbital swelling, Periorbital tenderness, Scleral icterus - ENT ENT exam: Normal exam, Mucous membranes moist Ear exam: Normal external inspection Nasal Exam: Normal inspection Mouth exam: Normal external inspection. negative: Drooling, Tongue normal Teeth exam: Normal inspection Throat exam: Normal inspection - Neck Neck exam: Normal inspection, Full ROM. negative: Tenderness - Respiratory Respiratory exam: Normal lung sounds bilaterally. negative: Respiratory distress - Cardiovascular Cardiovascular Exam: Regular rate, Normal rhythm, Normal heart sounds. negative : Diastolic murmur, Systolic murmur Peripheral Pulses: 2+: Radial (R), Radial (L) - GI/Abdominal GI/Abdominal exam: Soft. negative: Tenderness - Rectal Rectal exam: Deferred - exam: Deferred - Extremities Extremities exam: Normal inspection, Full ROM, Normal capillary refill. negative: Tenderness - Back Back exam: Reports: Normal inspection, Full ROM. Denies: Muscle spasm, Rash noted, Tenderness - Neurological Neurological exam: Alert, CN II-XII intact, Normal gait, Oriented X3, Reflexes normal, Other (no PND, normal FTN, normal HOLGER, no ataxia). negative: Abnormal gait, Altered, Motor sensory deficit - Psychiatric Psychiatric exam: Normal affect, Normal mood - Skin Skin exam: Dry, Intact, Normal color, Warm Course Vital Signs 08/27/17 07:58 Temperature 97.6 F Pulse Rate 86 Respiratory 20 Rate Blood Pressure 138/101 Pulse Ox 97 - Reevaluation(s) Reevaluation #1: 08/27/17 08:21 The patient is currently asymptomatic The episode lasted 10 minutes DC Summary will be requested from [facility] NIH is 0 08/27/17 08:35 EKG NSR rate 69 intervals normal, axis normal, ST normal with NS repol. No changes on EKG 12/05/16 including NS repol changes. 08/27/17 08:48 Prior [facility] records reviewed in the [facility] after prior work up. Patient reported several similar spells in the past. After negative work up PCP noted this may be migraine related as well given his frequent migraines. The patient has had normal work ups with neurology and cardiology. 08/27/17 09:10 DC Summary from [facility] was reviewed. The report states normal CT,CTA,MRI and neurology consult. He had a normal follow up EEG (per the patient). 08/27/17 09:11 The labs were reviewed. No acute changes. 08/27/17 09:23 The HCT was reviewed with the radiologist. No acute process or changes from the prior. The symptoms were brief and atypical for acute neuro event. He has had an extensive work up in the past. I discussed the case with his PCP. The patient is stable for outpatient follow with PCP and his neurologist. We discussed home care today with rest and reasons to return if any return of symptoms 08/27/17 09:32 The patient has been asymptomatic from arrival to discharge. 08/27/17 09:37 Medical Decision Making - Lab Data Result diagrams: 08/27/17 08:30 08/27/17 08:30 Disposition Disposition: Discharge Clinical Impression: Dizziness Disposition: Home, Self-Care Condition: (1) Good Instructions: Dizziness (ED) Additional Instructions: Call your neurologist and PCP for close follow up Return or be seen if you have any additional symptoms Rest today and stay well hydrated No work today Forms: Patient Portal Access Time of Disposition: 09:35 Quality - Quality Measures Quality Measures: Headache (All Ages) - Headache: Neuroimaging Quality Measure: Measure #419: Overuse of Neuroimaging ICD10 Codes Entered: Yes Neurological Exam: Patient had a normal neurological exam. [G9535] Headache: Use of Neuroimaging: CTA, CT, MRA or MRI Ordered w/Medical Reason [ G9536] Medical Reason for Exam: Change in Type of Headache - Blood Pressure Screening Does Patient Have Any of the Following: No Blood Pressure Classification: Hypertensive Reading Systolic Measurement: 138 Diastolic Measurement: 101 Screening for High Blood Pressure: < Pre-Hypertensive BP, F/U Documented > [ G8950] Pre-Hypertensive Follow-up Interventions: Referral to alternative/primary care provider.
[2017-08-27 08:40] LABS: BASO % 0.3 % (0-6); GRAN % 62.2 % (47-80); HEMATOCRIT 50.6 % (42.0-52.0); HEMOGLOBIN 16.6 gm/dl (14.0-18.0); LYMPH % 26.1 % (16-45); MEAN CELL VOLUME 89.7 fl (81-97); MEAN CORPUSCULAR HEMOGLOBIN 29.4 pg (27-33); MEAN CORPUSCULAR HGB CONC 32.8 g/dl (32-36); MEAN PLATELET VOLUME 9.4 fl (7.4-10.4); MONO % 9.4 % (0-9); PLATELET COUNT 238 K/uL (130-400); RED BLOOD COUNT 5.64 M/uL (4.40-5.70); RED CELL DISTRIBUTION WIDTH 13.4 % (11.5-14.5); WHITE BLOOD COUNT W/O DIFF 8.9 K/uL (4.2-12.2)
[2017-08-27 08:48] LABS: BLOOD UREA NITROGEN 15 mg/dL (6-20); CREATININE 0.8 mg/dL (0.7-1.2); EST GLOMERULAR FILTRATION RATE > 60 mL/min
[2017-08-27 08:49] LABS: TOTAL PROTEIN 7.3 g/dL (6.6-8.7)
[2017-08-27 08:51] LABS: GLUCOSE,RANDOM 118 mg/dL (74-109)
[2017-08-27 08:54] LABS: ALB/GLOB RATIO 1.5 (1.1-1.8); ALBUMIN 4.4 g/dL (4.0-5.0); ALKALINE PHOSPHATASE 87 U/L (40-129); ALT/SGPT 43 U/L (<41); AST/SGOT 30 U/L (10.0-50.0)
--- NOTE | 2017-08-28 08:15 | CT SCAN REPORT ---
EXAM: EMERGENCY HEAD CT HISTORY: DIZZINESS, CONFUSED, ARM AND HAND NUMB. TECHNIQUE: Axial CT scan of the head was performed without IV contrast. Comparison: Head CT 12/07/16. FINDINGS: No definite acute intracranial hemorrhage identified. Mild asymmetry in the lateral ventricles appears essentially unchanged from before and may simply be developmental. No definite intracranial mass or acute infarct seen. Small cyst or polyp medial wall of the left maxillary sinus. Moderate membrane thickening in the ethmoids bilaterally. No depressed calvarial fracture evident. IMPRESSION: 1. ASYMMETRY IN THE LATERAL VENTRICLES BEFORE. 2. NO DEFINITE ACUTE INTRACRANIAL HEMORRHAGE OR MASS IDENTIFIED. 3. SMALL CYST OR POLYP IN THE LEFT MAXILLARY SINUS AND MEMBRANE THICKENING IN THE ETHMOIDS BILATERALLY. JOB NUMBER: [id number] MTDD
== END 2017-08-27 09:44 | disposition home or self-care (01) ==
LOC: ER 07:55
DX: R42 Dizziness and giddiness (principal); R11.0 Nausea; I10 Essential (primary) hypertension; Z87.891 Personal history of nicotine dependence
CPT/HCPCS: 70450; 80053; 85025; 93005; 93010; 99284

== ENCOUNTER 2017-09-03 06:39 | Emergency (ER) | payer MEDICAID, SELFPAY ==
--- NOTE | 2017-09-03 07:03 | Emergency Department Record ---
History of Present Illness - General Chief complaint: Extremity Problem Stated complaint: LEFT ARM PAIN Time Seen by Provider: 09/03/17 06:56 Source: Patient Mode of Arrival: Ambulatory Limitations: No limitations - History of Present Illness Initial comments: 41 yo male presents with about one week of neck pain radiates to his left arm. The arm hurts to raise or lift up. He feels like the arm gets tingling at times. No swelling. No trauma. He has been seen for recent migraines and dizziness. He has been admitted to [facility] in the recent past that included work up of head CT,CTA,MRI and ECHO without any acute findings. No trauma. No known cervical disc disease that he is aware of. No chest pain, cough or shortness of breath. He has been seen by [facility] neurology in the past. MD Complaint: Neck Pain Onset/Timin -: Week(s) Location: Left, Arm History of Same: Yes Radiation: Proximal Severity scale (1-10): 6 Quality: Aching Consistency: Constant Improves with: Nothing Worsens with: Other Associated Symptoms: Denies other symptoms - Related Data Previous Rx's Medication Instructions Recorded Methylprednisolone [Medrol Dose 0 mg PO UD #1 tab.ds.pk 09/03/17 Pack] Allergies Allergy/AdvReac Type Severity Reaction Status Date / Time Penicillins Allergy HIVES Verified 12/05/16 17:50 Travel Screening - Travel/Exposure Within Last 30 Days Have you traveled within the last 30 days?: No - Travel Symptoms Symptom Screening: None Review of Systems Constitutional: Denies: Chills, Fever, Malaise, Weakness Eyes: Denies: Eye discharge ENT: Denies: Congestion, Throat pain Respiratory: Denies: Cough, Dyspnea, Hemoptysis, Stridor, Wheezes Cardiovascular: Denies: Chest pain, Palpitations, Syncope Endocrine: Denies: Fatigue Gastrointestinal: Denies: Abdominal pain, Diarrhea, Nausea, Vomiting Genitourinary: Denies: Dysuria, Frequency, Hematuria Musculoskeletal: Reports: Arthralgia, Myalgia. Denies: Joint swelling Skin: Denies: Bruising, Change in color, Rash Neurological: Reports: Headache (history of migraines), Tingling. Denies: Confusion, Weakness Psychiatric: Denies: Anxiety Hematological/Lymphatic: Denies: Blood Clots, Easy bleeding, Easy bruising, Swollen glands Past Medical History - SOCIAL HISTORY Smoking Status: Former smoker Alcohol Use: None Drug Use: Occasional Drug Use Detail:: Marijuana - RESPIRATORY Hx Respiratory Disorders: No - CARDIOVASCULAR Hx Cardio Disorders: Yes Hx Chest Pain: Yes Hx Hypertension: Yes - NEURO Hx Neuro Disorders: Yes Hx Headaches: Yes (migraine) - GI Hx GI Disorders: Yes Hx Reflux: Yes - Hx Genitourinary Disorders: No - ENDOCRINE Hx Endocrine Disorders: No - MUSCULOSKELETAL Hx Musculoskeletal Disorders: Yes Hx Back Injury: Yes - PSYCH Hx Psych Problems: No - HEMATOLOGY/ONCOLOGY Hx Hematology/Oncology Disorders: No Family Medical History Any Significant Family History?: Yes Hx Diabetes: Grandparents Hx Heart Disease: Grandparents Physical Exam - General General Appearance: Alert, Oriented x3, Cooperative, No acute distress Limitations: No limitations - Head Head exam: Atraumatic, Normal inspection - Eye Eye exam: Normal appearance, PERRL. negative: Conjunctival injection, Scleral icterus - ENT ENT exam: Normal exam, Mucous membranes moist Ear exam: Normal external inspection Nasal Exam: Normal inspection Mouth exam: Normal external inspection Teeth exam: Normal inspection Throat exam: Normal inspection - Neck Neck exam: Normal inspection, Full ROM, Tenderness. negative: Lymphadenopathy - Respiratory Respiratory exam: Normal lung sounds bilaterally. negative: Respiratory distress - Cardiovascular Cardiovascular Exam: Regular rate, Normal rhythm, Normal heart sounds Peripheral Pulses: 2+: Radial (L) - GI/Abdominal GI/Abdominal exam: Soft. negative: Tenderness - Rectal Rectal exam: Deferred - exam: Deferred - Extremities Extremities exam: Normal inspection, Normal capillary refill. negative: Calf tenderness, Full ROM (pain with left arm abduction, veterans contact representative 5/5, triceps 5/5, biceps 5/5, brisk cap refill, ), Joint swelling, Pedal edema, Tenderness - Back Back exam: Reports: Normal inspection. Denies: CVA tenderness (R), CVA tenderness (L), Muscle spasm, Paraspinal tenderness, Rash noted - Neurological Neurological exam: Alert, Normal gait, Oriented X3, Reflexes normal, Other (No objective weakness on examination of the LUE). negative: Altered, Motor sensory deficit - Psychiatric Psychiatric exam: Normal affect, Normal mood - Skin Skin exam: Dry, Intact, Normal color, Warm Course Vital Signs 09/03/17 06:49 Temperature 97.6 F Pulse Rate [ 74 Pulse Ox Probe] Respiratory 18 Rate Blood Pressure 136/98 [Right Arm] Pulse Ox 97 - Reevaluation(s) Reevaluation #1: The patient was seen and examined No objective motor weakness. Symptoms are radicular in nature. CT ordered I recommended close follow with PCP for MRI if not improved as well. He has seen [facility] neurology in the past and I recommended follow up as well with them 09/03/17 07:05 09/03/17 07:50 CT Cervical spine [facility] report:Degenerative changes C5-6 and C6-7, mild AP spinal stenosis at C6-7 slight narrowing of neural foramen Disposition Disposition: Discharge Clinical Impression: Cervical radicular pain Disposition: Home, Self-Care Condition: (1) Good Instructions: Cervical Radiculopathy (ED) Additional Instructions: Call your doctor for follow up in the office and the with [facility] neurology Prescriptions: Methylprednisolone [Medrol Dose Pack] 0 mg PO UD #1 tab.ds.pk Forms: Patient Portal Access Time of Disposition: 07:52 Quality - Quality Measures Quality Measures: Headache (All Ages) - Headache: Neuroimaging Quality Measure: Measure #419: Overuse of Neuroimaging ICD10 Codes Entered: Yes Neurological Exam: Patient had a normal neurological exam. [G9535] Headache: Use of Neuroimaging: < CTA, CT, MRA or MRI was NOT ordered > [G9534] - Blood Pressure Screening Does Patient Have Any of the Following: No Blood Pressure Classification: Hypertensive Reading Systolic Measurement: 136 Diastolic Measurement: 98 Screening for High Blood Pressure: < Pre-Hypertensive BP, F/U Documented > [ G8950] Pre-Hypertensive Follow-up Interventions: Referral to alternative/primary care provider.
--- NOTE | 2017-09-03 10:46 | CT SCAN REPORT ---
EXAM: CT OF THE CERVICAL SPINE HISTORY: NECK PAIN. TECHNIQUE: Axial CT images of the cervical spine were obtained with coronal and sagittal reconstructions. Comparison: None. FINDINGS: Evaluation of the spinal canal contents is limited due to CT technique, however, the vertebral body height and alignment is preserved. Multilevel degenerative change with disk space narrowing, osteophytic spurring, facet arthropathy, and uncovertebral joint hypertrophy. Findings are most pronounced at the C5-C6 and C6-C7 levels. The surrounding soft tissues are unremarkable. IMPRESSION: MULTILEVEL DEGENERATIVE CHANGE. NO CT EVIDENCE FOR ACUTE CERVICAL SPINE ABNORMALITY. JOB NUMBER: [id number] [facility]
== END 2017-09-03 08:07 | disposition home or self-care (01) ==
LOC: ER 06:39
DX: M54.12 Radiculopathy, cervical region (principal); I10 Essential (primary) hypertension; Z87.891 Personal history of nicotine dependence
CPT/HCPCS: 72125; 99283

== ENCOUNTER 2017-09-13 18:21 | Emergency (ER) | payer MEDICAID, SELFPAY ==
--- NOTE | 2017-09-13 19:38 | Emergency Department Record ---
History of Present Illness - General Chief Complaint: Laceration(s) Stated Complaint: LACERATION ON TOP OF HEAD Time Seen by Provider: 09/13/17 19:27 Source: Patient Mode of Arrival: Ambulatory Limitations: No limitations - History of Present Illness Initial Commments: 41 yo male presents a small scalp laceration. 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 No LOC. Tetanus is up to date. No changes in his vision. He has been dealing chronic headaches and left arm numbness that he follows with his PCP. He has an outpatient MRI tomorrow. No new changes in those symptoms. No other injuries. Onset/Timin -: Minutes(s) Location: Scalp Place: Home Context: Accidental Associated Symptoms: None - [place] Coma Scale Eye Response: (4) Open spontaneously Motor Response: (6) Obeys commands Verbal Response: (5) Oriented [place] Total: 15 - Related Data Hx Tetanus Toxoid Vaccination: Yes Year of Tetanus Vaccination: 2014 Patient Tetanus UTD (within 5 yrs): Yes Previous Rx's Medication Instructions Recorded Methylprednisolone [Medrol Dose 0 mg PO UD #1 tab.ds.pk 09/03/17 Pack] Allergies Allergy/AdvReac Type Severity Reaction Status Date / Time Penicillins Allergy HIVES Verified 12/05/16 17:50 Travel Screening - Travel/Exposure Within Last 30 Days Have you traveled within the last 30 days?: No Review of Systems Constitutional: Denies: Chills, Fever, Malaise, Weakness Eyes: Denies: Eye discharge ENT: Denies: Congestion, Throat pain Respiratory: Denies: Cough Cardiovascular: Denies: Chest pain Endocrine: Denies: Fatigue Gastrointestinal: Denies: Abdominal pain, Diarrhea, Nausea, Vomiting Genitourinary: Denies: Dysuria, Frequency, Hematuria Musculoskeletal: Reports: Neck pain. Denies: Arthralgia, Back pain, Joint swelling, Myalgia Skin: Denies: Bruising, Change in color, Rash Neurological: Reports: As per HPI, Headache, Tingling. Denies: Confusion Psychiatric: Denies: Anxiety Hematological/Lymphatic: Denies: Easy bleeding, Easy bruising Past Medical History - SOCIAL HISTORY Smoking Status: Former smoker Alcohol Use: None Drug Use: None - RESPIRATORY Hx Respiratory Disorders: No - CARDIOVASCULAR Hx Cardio Disorders: Yes Hx Chest Pain: Yes Hx Hypertension: Yes - NEURO Hx Neuro Disorders: Yes Hx Headaches: Yes (migraine) - GI Hx GI Disorders: Yes Hx Reflux: Yes - Hx Genitourinary Disorders: No - ENDOCRINE Hx Endocrine Disorders: No - MUSCULOSKELETAL Hx Musculoskeletal Disorders: Yes Hx Back Injury: Yes - PSYCH Hx Psych Problems: No - HEMATOLOGY/ONCOLOGY Hx Hematology/Oncology Disorders: No Family Medical History Any Significant Family History?: Yes Hx Diabetes: Grandparents Hx Heart Disease: Grandparents Physical Exam - General General Appearance: Alert, Oriented x3, Cooperative, No acute distress Limitations: No limitations - Head Head exam: negative: Atraumatic Head exam detail: Laceration (2cm scalp laceration) - Eye Eye exam: Normal appearance, PERRL. negative: Conjunctival injection, Scleral icterus - ENT ENT exam: Normal exam Ear exam: Normal external inspection Nasal Exam: Normal inspection Mouth exam: Normal external inspection Teeth exam: Normal inspection - Neck Neck exam: Normal inspection - Respiratory Respiratory exam: Normal lung sounds bilaterally. negative: Respiratory distress - Cardiovascular Cardiovascular Exam: Regular rate, Normal rhythm, Normal heart sounds - GI/Abdominal GI/Abdominal exam: Soft. negative: Tenderness - Rectal Rectal exam: Deferred - exam: Deferred - Extremities Extremities exam: Normal inspection, Full ROM, Normal capillary refill. negative: Tenderness - Back Back exam: Reports: Normal inspection - Neurological Neurological exam: Alert, Oriented X3 - Psychiatric Psychiatric exam: Normal affect, Normal mood - Skin Type of lesion: Laceration Course Vital Signs 09/13/17 19:18 Temperature 98.8 F Pulse Rate [ 97 H Pulse Ox Probe] Respiratory 24 Rate Blood Pressure 145/73 [Left Arm] Pulse Ox 99 - Reevaluation(s) Reevaluation #1: 09/13/17 19:36 Betadine Prep Cleaned with NS and ShurClens Sutures recommended given MRI tomorrow 3 sutures placed Proline 4-0 Tolerated well. Disposition Disposition: Discharge Clinical Impression: Scalp laceration Qualifiers: Encounter type: initial encounter Qualified Code(s): S01.01XA - Laceration without foreign body of scalp, initial encounter Disposition: Home, Self-Care Condition: (1) Good Instructions: Laceration (ED) Additional Instructions: Return in one week for suture removal Return sooner if you have redness, pus, pain or any new concerns. Time of Disposition: 19:37 Quality - Quality Measures Quality Measures: N/A, Headache (All Ages) - Headache: Neuroimaging Quality Measure: Measure #419: Overuse of Neuroimaging ICD10 Codes Entered: Yes Neurological Exam: Patient had a normal neurological exam. [G9535] Headache: Use of Neuroimaging: < CTA, CT, MRA or MRI was NOT ordered > [G9534] - Blood Pressure Screening Does Patient Have Any of the Following: Active Dx of HTN Blood Pressure Classification: Hypertensive Reading Systolic Measurement: 145 Diastolic Measurement: 73 Screening for High Blood Pressure: Patient Exclusion, Hx of HTN [G9744]
== END 2017-09-13 19:58 | disposition home or self-care (01) ==
LOC: ER 18:21
DX: S01.01XA Laceration without foreign body of scalp, initial encounter (principal); W22.8XXA Striking against or struck by other objects, initial encounter; I10 Essential (primary) hypertension; Z87.891 Personal history of nicotine dependence; Y92.008 Other place in unspecified non-institutional (private) residence as the place of occurrence of the external cause
CPT/HCPCS: 12001; 99283

== ENCOUNTER 2018-10-14 09:04 | Emergency (ER) | payer BC ==
[2018-10-14] MEDS ORDERED: MORPHINE SULFATE 10MG/1ML **1ML VIAL IM ONE (09:36)
--- NOTE | 2018-10-14 09:43 | Emergency Department Record ---
History of Present Illness - General Chief Complaint: Back Pain/Injury Stated Complaint: BACK PAIN Time Seen by Provider: 10/14/18 09:30 Source: Patient Mode of Arrival: Ambulatory Limitations: No limitations - History of Present Illness Initial Comments: 42 yo male presents with about two week of back pain. The pain is low and radiates down the left leg at times. No numbness or weakness. No changes to urination or bowel movements. He has seen his PCP and had XRays. He has an MRI scheduled for Saturday. No prior back surgery. No fevers. MD Complaint: Back pain Onset/Timin -: Week(s) (2) Place: Home Severity: Moderate Quality: Aching Consistency: Constant Improves With: Immobilization Worsens With: Movement Context: Bending Associated Symptoms: Denies other symptoms - Related Data Previous Rx's Medication Instructions Recorded Hydrocodone/Acetaminophen [[place] 1 tab PO Q6H PRN #12 tab 10/14/18 5mg/325mg] Allergies Allergy/AdvReac Type Severity Reaction Status Date / Time Penicillins Allergy HIVES Verified 10/14/18 09:36 Travel Screening - Travel/Exposure Within Last 30 Days Have you traveled within the last 30 days?: No - Travel/Exposure Within Last Year Have you traveled outside the [place] in the last year?: No - Additonal Travel Details Have you been exposed to anyone with a communicable illness?: No - Travel Symptoms Symptom Screening: None Review of Systems Constitutional: Denies: Chills, Fever, Malaise, Weakness Eyes: Denies: Eye discharge ENT: Denies: Congestion, Throat pain Respiratory: Denies: Cough Cardiovascular: Denies: Chest pain, Syncope Endocrine: Denies: Fatigue Gastrointestinal: Denies: Abdominal pain, Diarrhea, Nausea, Vomiting Genitourinary: Denies: Dysuria, Frequency, Hematuria, Incontinence, Retention Musculoskeletal: Reports: Back pain. Denies: Arthralgia, Myalgia Skin: Denies: Bruising, Change in color, Rash Neurological: Denies: Confusion, Headache Psychiatric: Denies: Anxiety Hematological/Lymphatic: Denies: Easy bleeding, Easy bruising Past Medical History - SOCIAL HISTORY Smoking Status: Former smoker Alcohol Use: None Drug Use: None - RESPIRATORY Hx Respiratory Disorders: No - CARDIOVASCULAR Hx Cardio Disorders: Yes Hx Chest Pain: Yes Hx Hypertension: Yes - NEURO Hx Neuro Disorders: Yes Hx Headaches: Yes (migraine) - GI Hx GI Disorders: Yes Hx Reflux: Yes - Hx Genitourinary Disorders: No - ENDOCRINE Hx Endocrine Disorders: No - MUSCULOSKELETAL Hx Musculoskeletal Disorders: Yes Hx Back Injury: Yes - PSYCH Hx Psych Problems: No - HEMATOLOGY/ONCOLOGY Hx Hematology/Oncology Disorders: No Family Medical History Any Significant Family History?: Yes Hx Diabetes: Grandparents Hx Heart Disease: Grandparents Physical Exam - General General Appearance: Alert, Oriented x3, Cooperative, No acute distress Limitations: No limitations - Head Head exam: Atraumatic, Normal inspection - Eye Eye exam: Normal appearance. negative: Conjunctival injection, Scleral icterus - ENT ENT exam: Normal exam Ear exam: Normal external inspection Nasal Exam: Normal inspection Mouth exam: Normal external inspection - Neck Neck exam: Normal inspection - Respiratory Respiratory exam: Normal lung sounds bilaterally. negative: Respiratory distress - Cardiovascular Cardiovascular Exam: Regular rate, Normal rhythm, Normal heart sounds - Rectal Rectal exam: Deferred - exam: Deferred - Extremities Extremities exam: Normal inspection, Full ROM. negative: Pedal edema, Tenderness - Back Back exam: Reports: Muscle spasm, Paraspinal tenderness (low lumbar), Tendern ess, Vertebral tenderness. Denies: CVA tenderness (R), CVA tenderness (L), Full ROM Image of Body Front/Back: 1 - tender lower lumbar to the left glutteal - Neurological Neurological exam: Alert, Normal gait, Oriented X3, Reflexes normal. negative: Motor sensory deficit - Psychiatric Psychiatric exam: Normal affect, Normal mood - Skin Skin exam: Dry, Intact, Normal color, Warm Course Vital Signs 10/14/18 09:29 Temperature 98.4 F Pulse Rate 91 H Respiratory 17 Rate Blood Pressure 146/107 Pulse Ox 97 - Reevaluation(s) Reevaluation #1: 10/14/18 09:40 The examination is consistent with sciatica No weakness or changes in bowel or bladder He has an MRI scheduled He will be given a limited amount of pain medication for home and off work 2 days. 10/14/18 09:43 XR was reviewed from 09/22/18 Disposition Disposition: Discharge Clinical Impression: Sciatica Qualifiers: Laterality: left Qualified Code(s): M54.32 - Sciatica, left side Disposition: Home, Self-Care Condition: (1) Good Instructions: Sciatica (ED) Additional Instructions: Call your doctor for the next available follow up appointment Review this ER visit and the tests performed with your family doctor Return to the ER for a recheck if worse, any new concerns or questions Take the prescriptions provided as directed Prescriptions: Hydrocodone/Acetaminophen [[place] 5mg/325mg] 1 tab PO Q6H PRN #12 tab PRN Reason: Pain - General Forms: Patient Portal Access Time of Disposition: 09:43 Quality - Quality Measures Quality Measures: N/A - Blood Pressure Screening Does Patient Have Any of the Following: No Blood Pressure Classification: Hypertensive Reading Systolic Measurement: 128 Diastolic Measurement: 109 Screening for High Blood Pressure: < Pre-Hypertensive BP, F/U Documented > [G8950] Pre-Hypertensive Follow-up Interventions: Referral to alternative/primary care provider.
== END 2018-10-14 10:06 | disposition home or self-care (01) ==
LOC: ER 09:04
DX: M54.42 Lumbago with sciatica, left side (principal); I10 Essential (primary) hypertension; Z87.891 Personal history of nicotine dependence
CPT/HCPCS: 96372; 99283; J2270

== ENCOUNTER 2019-03-11 11:17 | Day surgery (SDC) | payer BC ==
--- NOTE | 2019-03-11 07:33 | History and Physical - [place] ---
CHIEF COMPLAINT/HISTORY OF CHIEF COMPLAINT: This patient presents with a history of an intractable lumbar radiculopathy. Due to the failure of therapy he is here for an intraspinal spacer at L4-L5 to control a bilateral lower extremity neurogenic intermittent claudication or pain to his lower extremities. PAST MEDICAL HISTORY: Hypertension. PAST SURGICAL HISTORY: Myringotomy. MEDICATIONS ON ADMISSION: List to be provided. ALLERGIES: PENICILLIN. FAMILY/PSYCHOSOCIAL HISTORY: Social history - Caffeine and smoking. Family history - Hypothyroidism, diabetes, and coronary artery disease. SYSTEMS REVIEW: The patient seems appropriate in no acute distress. The remainder of the systems review is positive for chronic head and neck pain, blood pressure problems, degenerative arthritis, and peptic ulcer disease. PHYSICAL EXAMINATION: Height is 6', weight is 300 pounds. No vital signs. HEENT: Within normal limits. LUNGS: Clear. HEART: Rapid and regular. ABDOMEN: Nontender. MUSCULOSKELETAL: Examination of the musculoskeletal system shows the primary pain pattern to be bilateral lower extremity. Diagnostics show a moderate disk bulge spurring with central stenosis and foraminal stenosis at L4-L5. Lower extremity functionality shows pain and weakness extending into the extremities. The pattern of pain is relieved with forward flexing and sitting, aggravated and exacerbated with activity. IMPRESSION: 1. LUMBAR RADICULOPATHY, ICD-10 CODE M54.16 AND M54.17. 2. LUMBAR SPINAL STENOSIS WITH NEUROGENIC INTERMITTENT CLAUDICATION, ICD-10 CODE M48.062. PLAN: The patient is here for intraspinal spacer at L4-L5. The risks, side effects and complications have all been reviewed and discussed. He has already been given a copy of his restrictions for six weeks and understands the potential complications of the procedure itself. The procedure will be considered outpatient, an overnight stay will be not required. The incision and suturing and all of the details of the procedure were carefully reviewed and discussed. All of his questions were answered. cc: Dr. Scherer. JOB NUMBER: [id number] [facility]
[~2019-03-11 11:17] MED LIST: ACETAMINOPHEN 1,000 MG/100 ML BTL IVPB ONE; CLINDAMYCIN 600MG/50ML PREMIX 600 MG/50 ML BAG IVPB ONE; FAMOTIDINE 20MG TABLET PO ONE; MECLIZINE 25 MG TABLET PO ONE; METOCLOPRAMIDE 10 MG TABLET PO ONE
[2019-03-11] MEDS ORDERED: GLYCOPYRROLATE 0.2 MG/ML ML IV ONE (11:18)
[2019-03-11] MEDS ORDERED: LABETALOL HCL 5MG/ML, 20ML VIAL IV ONE (11:18)
[2019-03-11] MEDS ORDERED: METOPROLOL TART 5 MG/5 ML VIAL IV ONE (11:18)
[2019-03-11] MEDS ORDERED: MIDAZOLAM HCL 2MG/2ML VIAL IV ONE (11:18)
[2019-03-11] MEDS ORDERED: PROPOFOL 10 MG/ML VIAL IV ONE (11:18)
[2019-03-11] MEDS ORDERED: LIDOCAINE 2% MDV (20MG/ML) 20ML VIAL IV ONE (11:18)
[2019-03-11] MEDS ORDERED: RINGERS SOLUTION,LACTATED 1,000 ML IV ONE ×2 (12:10→15:50)
[2019-03-11] MEDS ORDERED: LIDOCAINE 1% W/EPI 1:200,000 MPF 30ML SQ ONE (15:00)
[2019-03-11] MEDS ORDERED: BUPIVACAINE 0.5% W/EPI MPF 30 ML VIAL SQ ONE (15:00)
[2019-03-11] MEDS ORDERED: Clindamycin 600mg vial 150 MG/ML VIAL IR ONE (15:00)
--- NOTE | 2019-03-13 13:10 | Operative Note ---
DATE OF SURGERY: 03/11/2019 PREOPERATIVE DIAGNOSIS: Lumbar spinal stenosis with neurogenic intermittent claudication, ICD10 code M48.062. OPERATION: Fluoroscopic-guided placement of interspinal spacer, Vertiflex, at L4-5. SURGEON: Mian Asher DO ANESTHESIA: Local with sedation. ANESTHESIA PROVIDER: Erin Mensah INDICATION: This patient presents with lumbar spinal stenosis at L4-5 with a symptom pattern consistent with neurogenic intermittent claudication. Certain activities will irrigate and aggravate. Forward bending relieves, sitting relieves. Due to the failure of therapy and the symptom pattern consistent with spinal stenosis at L4-5, he is here for an interspinous spacer placement, Vertiflex. PROCEDURE: Intravenous line, vital sign monitoring, IV sedation. Prepped and draped sterile technique. Patient positioned prone. Sterile prep, sterile technique. Under imaging, the spinal interspace at L4-5 was imaged. The spinous processes aligned. Using AP and lateral imaging, the skin infiltrated. Introducer/dilator was then inserted using AP and lateral imaging and placed at the posterior aspect between the spinous process of L4 and L5. A secondary dilator was then inserted and placed midline and midpoint between the spinous processes of L4 and L5. AP and lateral imaging was used. A debridement tool was then used towards the posterior laminar line and then a Vertiflex titanium interspinous spacer was inserted using AP and lateral imaging and placed at the inner laminar line. It was slowly opened using AP imaging angling towards the front aspect of the spinous process and imaging posterior at the posterior spinous process to ensure that the Vertiflex interspinous spacer was opening equally between the spinous processes. At that point, it was fully expanded and seated between the spinous processes of L4 and L5. A took was used to gently tap the interspinous spacer deeper up against the laminar line. All instruments were removed. Antibiotic irrigation as performed. The deep tissue was closed using 2- 0 Vicryl and an intermittent interrupted nylon suture was used to close the skin. OpSite dressing was placed. He had received intravenous antibiotic prior to the procedure and was transported to the recovery room stable. There were no side effects. Some grogginess from the sedation. He was monitored until stable. DISCHARGE INSTRUCTIONS: 1. The site will remain clean and dry. No showering or bathing in any way that would wet the dressing. 2. He will start Levaquin, the antibiotic, 500 mg once a day for 14 days. 3. Restrictions for the interspinous space are 6 weeks. He is to limit his activities. No bend, lift, push, pull. Nothing strenuous for 6 weeks. The office will contact the patient in the next 24-48 hours to set up a time in the next 7- 10 days for us to evaluate the sites. At that point, the suture will be removed. All other instructions have been provided. He tolerated the procedure without difficulty. There were no unusual side effects. No weakness in his extremities. No new pain pattern. We will evaluate in the next 7-10 days. He can contact the clinic at any point. RAYMOND
== END 2019-03-11 16:25 | disposition home or self-care (01) ==
LOC: SUR 11:17
PROVIDERS: ATTEND Pain Medicine Interventional Pain Medicine
DX: M48.062 Spinal stenosis, lumbar region with neurogenic claudication (principal); E66.9 Obesity, unspecified; Z86.73 Personal history of transient ischemic attack (TIA), and cerebral infarction without residual deficits
CPT/HCPCS: 22869; 00630; C1821; J7120